=== PATIENT | male | born 1980 | race Caucasian/White ===

== ENCOUNTER 2022-07-04 08:51 | Emergency (ER) | payer OTHER, BC, SELFPAY ==
--- OUTSIDE RECORDS SUMMARY | 2022-07-04 09:08 | XMS_ITS | Referral Summary ---
Author Name Unknown Organization [facility] Address [address] [place], [place] [address] [id number] Encounter [facility] [id number] Date(s): 08/23/20 - 08/23/[address] [place] [address]- [place] Discharge Disposition: Home or Self Care Attending Physician: Cierra CARROLL, Robert Marrero Social History Social History Type Response
[2022-07-04 09:23] VITALS: BP 120/71; PULSE 73; RESP 16; TEMP 36.5; O2SAT 96
[2022-07-04 10:30] VITALS: BP 116/80; PULSE 72; RESP 14; TEMP 36.4; O2SAT 95
--- NOTE | 2022-07-04 13:26 | ED.GENADUL_ITS ---
Discharge Plan Disposition Patient Disposition: Home Discharge Details Clinical Impression: Laceration of left thumb Primary Care Provider: None,None ED Provider: Jayda Kuo Home Meds and New Rx's Prescriptions: New cephalexin 500 mg tablet 500 mg PO BID 5 Days Qty: 10 0RF Discharge Instructions Instructions: Laceration (ED), Skin Adhesive Care (ED) Additional Instructions: Keep clean and dry, Begin antibiotics for signs of infection, red streaks, or drainage. Skin adhesive will slough off in approximately 4-6 days. Stand Alone Forms: Work Release Medical Decision Making 41 year old male presents to the ED with CC of left thumb laceration which occured approx 5 hrs [employer]. He has ful ROM noted to his thumb, unsure of last Tetenas vaccination. 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 Upon my assessment, bleeding controlled. FROM, distal sensation intact. Approx 1 cm laceration over the DIP joint of left thumb. Wound cleaned with chlorahexadine and steril saline, skin adhesive applied, wound well approximated. Wound is not contaminated, no obvious foreign body. Imaging not obtained at t his time due to full range of motion. Discussed home care and strict return instructions including signs of infection. Verbalized understanding. Patient given a prescription for 5 days of cephalexin to begin in the next few days if there is any signs of possible infection. Patient verbalizes un derstanding I did discuss red flags what to watch for. This text was generated using [employer] system, please disregard any oddities of phrase or misspellings. HPI General Mode of arrival: ambulatory . Date/Time Provider Initiated Documentation: 07/04/22 12:54 . Limitations to Documentation: no limitations . Information obtained by: patient, RN notes reviewed and old records reviewed . HPI Narrative: 41 year old male presents to the ED with CC of left thumb laceration which occured approx 5 hrs [employer]. He has ful ROM noted to his thumb, unsure of last Tetenas vaccination. 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 Upon my assessment, bleeding controlled. FROM, distal sensation intact. Related Data Home Medications Medication Instructions Recorded Confirmed cephalexin 500 mg tablet 500 mg PO BID 5 days #10 tabs 07/04/22 Previous Rx's Medication Instructions Recorded cephalexin 500 mg tablet 500 mg PO BID 5 days #10 tabs 07/04/22 Allergies Allergy/AdvReac Type Severity Reaction Status Date / Time No Known Allergies Allergy Unverified 07/04/22 09:27 General Stated Complaint: Laceration DANIEL: 4 Review of Systems Integumentary/Breasts Skin/Breast: Reports as per HPI and Reports wounds (Left thumb) PFS All Active Problems (Updated 07/04/22 @ 13:40 by Jayda Kuo NP) Laceration of left thumb (Acute) Social History Smoking/Tobacco Use Status: Never Smoking risk assessment performed?: Yes Alcohol Intake: never Drug use: Never Substance use type: does not use Do you feel safe at home: Yes Do you feel safe in your relationship?: Yes Exam Narrative Exam Narrative: Constitutional: Alert and oriented x3. Appears stated age. Normal body habitus. Head: Normocephalic, no trauma. Eyes: Pupils PERRL, Red reflex noted, EOM's intact. Eyelids symmetrical without lesions, discharge, or swelling. ENT: Bilateral TM's WNL, External ear normal to inspection, no mastoid TTP, swelling, or erythema, Nasal turbinates WNL, no nasal discharge. Normal dentition, Posterior pharynx WNL, no exudate. Chest: RRR, Normal S1, S2, distal pulses intact. Resp: Lungs clear to auscultation bilaterally, no wheezes, rales, or rhonchi. Abdomen: Soft, non-distended, Normoactive bowel sounds all 4 quads. Musculoskeletal: Normal gait, 5/5 strength to all four extremities. Skin: No suspicious rashes or lesions. Capillary refill less than 2 sec. Neurologic: Cranial nerves II-XII intact. Alert and oriented x 3. Motor: No deficits noted. Sensory: Intact bilaterally all 4 extremities. Reflexes: DTR's intact bilaterally.. Hematologic/Lymphatic: No ecchymosis, no lymphadenopathy. Extrem Left upper extremity: hand Details: laceration thumb dorsal aspect central Details: linear and involving subcutaneous tissue; not actively bleeding, no pulsatile bleeding, no foreign body present and not contaminated Hand/finger images: 1. Approximately 1 cm laceration over the MCP, bleeding controlled, wound well approximated, full range of motion. Course Vital Signs Vital signs: Vital Signs Temperature 36.5 C 07/04/22 09:23 Pulse 73 07/04/22 09:23 Respiratory Rate 16 07/04/22 09:23 Blood Pressure 120/71 07/04/22 09:23 Pulse Oximetry 96 07/04/22 09:23 Temperature 36.4 C L 07/04/22 10:30 Temperature Source Tympanic 07/04/22 10:30 Pulse 72 07/04/22 10:30 Respiratory Rate 14 07/04/22 10:30 Blood Pressure 116/80 07/04/22 10:30 Pulse Oximetry 95 07/04/22 10:30 Oxygen Delivery Method Room Air 07/04/22 10:30 Oxygen Flow Rate 0 07/04/22 10:30 Pain Level 2 07/04/22 10:30 Comment Patient stated he did not need anything at this time. 07/04/22 10:30
[2022-07-04 13:49] VITALS: BP 103/64; PULSE 65; RESP 16; TEMP 36.9; O2SAT 98
== END 2022-07-04 13:51 | disposition home or self-care (01) ==
PROVIDERS: Emergency Provider Registered Nurse Emergency
DX: S61.012A Laceration without foreign body of left thumb without damage to nail, initial encounter (principal); Z23 Encounter for immunization; X58.XXXA Exposure to other specified factors, initial encounter; Y93.89 Activity, other specified
CPT/HCPCS: 90471; 99284

== ENCOUNTER 2023-08-06 13:24 | Outpatient (CLI) | payer BC, SELFPAY ==
--- NOTE | 2023-08-06 13:15 | RT.EKG_ITS ---
APPROVED REPORT Exam: Resting ECG Reason for Exam: Chest discomfort Patient Location: O HR:63 bpm ECG Measurements Heart Rate 63 AXIS MI 160 P 51 QRSd 107 QRS -56 QT 412 T 30 QTc 422 Conclusion Sinus rhythm...normal P axis, V-rate 50- 99 Probable left atrial enlargement...P >50mS, <-0.10mV V1 LAD, consider left anterior fascicular block...axis(240,-40), S>R II III aVF RSR' in V1 or V2,
== END 2023-08-06 13:25 | disposition home or self-care (01) ==
LOC: DI.CM 13:24
PROVIDERS: Visit Provider Nurse Practitioner Family
DX: R07.89 Other chest pain (principal)
CPT/HCPCS: 93010

== ENCOUNTER 2023-08-06 14:10 | Emergency (ER) | payer BC, SELFPAY ==
--- NOTE | 2023-08-06 14:00 | RT.EKG_ITS ---
APPROVED REPORT Exam: Resting ECG Reason for Exam: Chest Pain Patient Location: E HR:56 bpm ECG Measurements Heart Rate 56 AXIS RI 164 P 45 QRSd 110 QRS -55 QT 406 T 12 QTc 394 Conclusion Sinus bradycardia 56 normal axis TW III
[2023-08-06 14:15] VITALS: BP 142/84; PULSE 64; RESP 20; TEMP 37.2; O2SAT 99
--- NOTE | 2023-08-06 14:32 | ED.GENADUL_ITS ---
Discharge Plan Disposition Patient Disposition: Home Condition: Stable Discharge Details Clinical Impression: Chest pain Primary Care Provider: Unknown,Unknown ED Provider: Lolly Miller Home Meds and New Rx's Prescriptions: No Action No Known Home Meds Discharge Instructions Instructions: Chest Pain (ED) Additional Instructions: you have been referred to primary care for follow up please schedule appointment to establish care and get outpatient stress testing Discharge Data Discharge Date/Time-TO BE ENTERED AT DEPARTURE: 08/06/23 15:46 HPI General Date/Time Provider Initiated Documentation: 08/06/23 14:13 . Limitations to Documentation: no limitations . Information obtained by: patient . HPI Narrative: 43-year-old gentleman without significant past medical history presents for evaluation of chest pain. Patient was referred from [facility] today for further evaluation. Patient presented there today with chest pain that woke him from sleep. Reports left-sided pressure sensation. 4 out of 10. He reports that he has been having the same pain intermittently for the last year. It is not exertional. Sometimes it is associated with shortness of breath. Denies any diaphoresis or nausea. Reports that the symptoms last for 1 to 2 hours and then resolved spontaneously. Reports that he thinks that he has this chest pain when he is dehydrated or if he has had a stressful week at work. Reports that he smokes marijuana, but denies tobacco use. Reports daily alcohol use, denies significant family history. Related Data Home Medications Medication Instructions Recorded Confirmed Unknown [No Known Home Meds] 08/06/23 08/06/23 Allergies Allergy/AdvReac Type Severity Reaction Status Date / Time No Known Allergies Allergy Unverified 08/06/23 14:20 General Stated Complaint: Chest Pain DANIEL: 3 Exam Narrative Exam Narrative: Review of Systems: All systems reviewed & are unremarkable except as noted in HPI and below Well-developed, no acute distress NCAT PERRL, normal conjunctiva RRR, no murmur Unlabored respiratory effort, clear bilaterally Nondistended abdomen , nontender Extremities w/o deformity, no cyanosis, no edema No rashes or lesions. no focal neurologic deficits Appropriate mood and affect Course Vital Signs Vital signs: Vital Signs Temperature 37.2 C 08/06/23 14:15 Pulse 64 08/06/23 14:15 Respiratory Rate 20 08/06/23 14:15 Blood Pressure 142/84 H 08/06/23 14:15 Pulse Oximetry 99 08/06/23 14:15 Temperature 37.2 C 08/06/23 14:15 Temperature Source Temporal Artery Scan 08/06/23 14:15 Pulse 64 08/06/23 14:15 Respiratory Rate 20 08/06/23 14:15 Respiratory Effort Normal 08/06/23 14:19 Blood Pressure 142/84 H 08/06/23 14:15 Blood Pressure Position Supine 08/06/23 14:15 Pulse Oximetry 99 08/06/23 14:15 Oxygen Delivery Method Room Air 08/06/23 14:15 Oxygen Flow Rate 0 08/06/23 14:15 Pain Level 1 08/06/23 14:15 Medical Decision Making Emergent evaluation of chest pain. Patient has no significant risk factors for ACS. His EKG was reviewed and does not have any acute ischemic changes. His chest pain story is also not concerning for acute coronary related chest pain. He received aspirin at the urgent care and his chest pain at this time is not even a 1. No nitro indicated. Plan for blood work and will refer for primary care establishment and outpatient stress testing. Lab work reviewed. No significant abnormalities. Troponin negative. Given patient's low risk, will discharge home. Referral has been placed for primary care and outpatient stress testing. Return precautions advised. Medical Records Medical records reviewed: Yes I reviewed the patient's medical records. Lab Data Lab results reviewed: Yes I reviewed the patient's lab results. ECG Data Attestation: I personally reviewed and interpreted this ECG (s) as follows: Prior ECG tracings: available for review Interpretation: Sinus bradycardia, normal axis, no STEMI Quality:SDOH Health Related Social Needs: No Data to Display PFSH All Active Problems (Updated 08/06/23 @ 15:29 by Lolly Miller MD) Chest pain (Acute) Social History Smoking/Tobacco Use Status: Current every day Tobacco Type: smokeless tobacco Smoking risk assessment performed?: Yes Alcohol Intake: never Drug use: Daily Substance use type: marijuana Housing: house Do you feel safe at home: Yes Do you feel safe in your relationship?: Yes PAWSS Have you Been Recently Intoxicated or Drunk Within the Last 30 days?: No Have you Ever Experienced Previous Episodes of Alcohol Withdrawal?: No Have you ever Experienced Withdrawal Seizures?: No Have you ever Experienced Delirium Tremens(DT)s?: No Have you ever undergone Alcohol Rehabilitation Treatment (i.e, inpt ot outpatient treatment programs)?: No Have you ever Experienced Blackouts?: No Have you ever Combined Alcohol with other Downers within the last 90 days?: No Have you ever Combined Alcohol with any other Substance of Abuse during the last 90 days?: No Result: 0
[2023-08-06 14:33] VITALS: RESP 18
[2023-08-06 14:37] LABS: Abs Immature Grans 0.02 10^3/uL (0.0-0.06); Absolute Basophil Count 0.04 10^3/uL (0.0-0.2); Absolute Eosinophil Count 0.07 10^3/uL (0.0-0.7); Absolute Lymphocyte Count 2.46 10^3/uL (1.2-3.4); Absolute Monocyte Count 0.55 10^3/uL (0.1-0.8); Absolute Neutrophil Count 3.11 10^3/uL (1.2-6.7); Basophils % 0.6; Eosinophils % 1.1; HCT 46.4 % (40.0-50.0); HGB 15.7 g/dL (13.5-17.5); Immature Grans % 0.3; Lymphocytes % 39.4; MCH 31.5 pg (27.0-33.0); MCHC 33.8 % (32.0-36.0); MCV 93 fL (80-95); MPV 8.1 fL (8.0-11.0); Monocytes % 8.8; Neutrophils % 49.8; Platelet Count 258 10^3/uL (130-400); RBC 4.99 10^6/uL (4.36-5.78); RDW 12.8 % (11.8-14.1); RDW-SD 43.9 fL; WBC 6.25 10^3/uL (4.4-10.8)
[2023-08-06 15:06] LABS: ALT 22 U/L (16-63); AST 16 U/L (15-37); Alkaline Phosphatase 69 U/L (46-116); Anion Gap 5.6 mmol/L (3-11); BUN 17 mg/dL (7-18); Bilirubin, Total 0.5 mg/dL (0.2-1.0); CO2 30.4 mmol/L (21.0-32.0); Calcium 8.7 mg/dL (8.5-10.1); Chloride 108 mmol/L (98-107); Estimated GFR 96.97 (mL/min/1.73m2); Glucose 81 mg/dL (74-106); Magnesium 2.3 mg/dL (1.8-2.4); NT-proBNP 61 pg/mL (<300); Sodium 144 mmol/L (136-145); Total Protein 7.4 g/dL (6.4-8.2); Troponin I < 50 ng/L (< or =60)
--- NOTE | 2023-08-06 15:33 | NUR.NOTE ---
Referral given to Care Managers to assist in setting up a Primary Care Provider as well as for Outpatient Stress Test.
== END 2023-08-06 15:46 | disposition home or self-care (01) ==
PROVIDERS: Emergency Provider Emergency Medicine
DX: R07.9 Chest pain, unspecified (principal); R06.9 Unspecified abnormalities of breathing; R00.1 Bradycardia, unspecified; F17.290 Nicotine dependence, other tobacco product, uncomplicated
CPT/HCPCS: 80053; 93005; 99284; 83735; 83880; 84484; 85025; 93010